=== PATIENT | male | born 1940 ===

== ENCOUNTER 2018-05-01 14:22 | Day surgery (SDC) | payer MEDICARE, OTHER ==
[2018-05-01] MEDS ORDERED: LIDOcaine Viscous 15ml cup ONE (14:39)
[2018-05-01] MEDS ORDERED: fentaNYL/PF 50MCG/1 ML 2ML syringe ONE (14:39)
[2018-05-01] MEDS ORDERED: MIDAZolam 5mg/5ml vial ONE (14:39)
[2018-05-01 14:40] VITALS: BP 140/87
[2018-05-01] MEDS ORDERED: FURO-150 PO (14:46)
[2018-05-01] MEDS ORDERED: INSU100C10 SQ (14:46)
[2018-05-01] MEDS ORDERED: PANT-47 PO (14:46)
[2018-05-01] MEDS ORDERED: LANTUS SQ (14:46)
[2018-05-01] MEDS ORDERED: CYA500T PO (14:46)
[2018-05-01] MEDS ORDERED: ellipta INH (14:46)
[2018-05-01] MEDS ORDERED: ALLO100T PO (14:46)
[2018-05-01] MEDS ORDERED: LIDO30CR23 TOP (14:46)
[2018-05-01] MEDS ORDERED: DOXE50CA4 PO (14:46)
[2018-05-01] MEDS ORDERED: METO-292 PO (14:46)
[2018-05-01] MEDS ORDERED: PRAM0.5T3 PO (14:46)
[2018-05-01] MEDS ORDERED: SYN0.088T PO (14:46)
[2018-05-01] MEDS ORDERED: ATRIN INH (14:46)
[2018-05-01] MEDS ORDERED: ISOS120T9 PO (14:46)
[2018-05-01] MEDS ORDERED: FERR325T28 PO (14:46)
[2018-05-01] MEDS ORDERED: ADV50100 IH (14:46)
[2018-05-01] MEDS ORDERED: PRED1TAB PO (14:46)
[2018-05-01] MEDS ORDERED: ATOR40TA PO (14:46)
[2018-05-01] MEDS ORDERED: ALFU10TA10 PO (14:46)
[2018-05-01] MEDS ORDERED: GABA-532 PO (14:46)
[2018-05-01] MEDS ORDERED: ALB0.5UD IH (14:46)
[2018-05-01] MEDS ORDERED: METO1TAB25 PO (14:46)
[2018-05-01] MEDS ORDERED: BUPR150T8 PO (14:46)
[2018-05-01] MEDS ORDERED: CHOL10002 PO (14:46)
[2018-05-01] MEDS ORDERED: CHOL4PAC19 PO (14:46)
[2018-05-01] MEDS ORDERED: LISI-600 PO (14:46)
[2018-05-01] MEDS ORDERED: HYDR-565 PO (14:48)
[2018-05-01] MEDS ORDERED: LOPE2TAB25 PO (14:48)
[2018-05-01] MEDS ORDERED: DOCU250C4 PO (14:48)
[2018-05-01] MEDS ORDERED: ACET650S13 RC (14:48)
[2018-05-01 15:40] VITALS: BP 143/69
[2018-05-01 15:50] VITALS: BP 139/80
[2018-05-01 16:00] VITALS: BP 139/70
[2018-05-01 16:10] VITALS: BP 132/65
== END 2018-05-01 16:15 ==
LOC: GI LAB 14:22
PROVIDERS: ATTEND Internal Medicine Gastroenterology
DX: K29.50 Unspecified chronic gastritis without bleeding (principal); K21.0 Gastro-esophageal reflux disease with esophagitis; I11.0 Hypertensive heart disease with heart failure; I50.9 Heart failure, unspecified; E11.9 Type 2 diabetes mellitus without complications; Z79.891 Long term (current) use of opiate analgesic; Z79.4 Long term (current) use of insulin; Z87.891 Personal history of nicotine dependence; Z79.899 Other long term (current) drug therapy
CPT/HCPCS: 43239; J2250; J3010; J7030; A4620; G0500

== ENCOUNTER 2018-05-10 10:08 | Outpatient (CLI) | payer OTHER ==
[~2018-05-10 10:08] MED LIST: ACET650S13 RC; ADV50100 IH; ALB0.5UD IH; ALFU10TA10 PO; ALLO100T PO; ATOR40TA PO; ATRIN INH; BUPR150T8 PO; CHOL10002 PO; CHOL4PAC19 PO; CYA500T PO; DOCU250C4 PO; DOXE50CA4 PO; FERR325T28 PO; FURO-150 PO; GABA-532 PO; HYDR-565 PO; INSU100C10 SQ; ISOS120T9 PO; LANTUS SQ; LIDO30CR23 TOP; LISI-600 PO; LOPE2TAB25 PO; METO-292 PO; METO1TAB25 PO; PANT-47 PO; PRAM0.5T3 PO; PRED1TAB PO; SYN0.088T PO; ellipta INH
[2018-05-10] MEDS ORDERED: BARIUM SULFATE 340 ML SUSP.RECON***PROCEDURE AREA ONLY**DONT ENTER PO ONE (10:28)
== END 2018-05-10 23:59 | disposition home or self-care (01) ==
LOC: RAD 10:08
PROVIDERS: ATTEND Internal Medicine
DX: J96.20 Acute and chronic respiratory failure, unspecified whether with hypoxia or hypercapnia (principal); I10 Essential (primary) hypertension; E11.9 Type 2 diabetes mellitus without complications; J44.9 Chronic obstructive pulmonary disease, unspecified
CPT/HCPCS: 74245